=== PATIENT | male | born 1970 | race Caucasian/White ===

== ENCOUNTER 2019-12-31 09:58 | Emergency (ER) | payer BC, SELFPAY ==
[2019-12-31 10:02] VITALS: BP 146/88; PULSE 100; RESP 18; TEMP 36.7; O2SAT 100
--- NOTE | 2019-12-31 11:49 | ED.BACK ---
HPI - Back Pain/Injury General Chief Complaint: Back Pain/Injury Stated Complaint: worsening back pain Time Seen by Provider: 12/31/19 11:07 Source: patient Mode of arrival: ambulatory Limitations: no limitations History of Present Illness HPI Narrative: This is a 49-year-old male that presents the emergency department for low back pain starting yesterday. Does report a history of chronic low back problems that have been intermittent over the last 5 years. No recent injuries or trauma. Reports the pain radiates into his hip and groin on both sides. Also radiates into his legs at times. Pain is sharp and constant, worse with movement. Denies fever, abdominal pain, nausea, vomiting, saddle anesthesia, bowel/bladder incontinence, dysuria or hematuria. Related Data Home Medications Medication Instructions Recorded Confirmed cyanocobalamin (vitamin B-12) 1,000 mcg PO DAILY 12/31/19 [Vitamin B-12] hydrocodone-acetaminophen [Teton] 1 tablet PO Q6H PRN 12/31/19 loratadine [Claritin] 10 mg PO DAILY 12/31/19 Allergies Allergy/AdvReac Type Severity Reaction Status Date / Time Penicillins AdvReac Mild Nausea and Verified 12/31/19 10:10 Vomiting Review of Systems Review of Systems: Narrative: CONSTITUTIONAL: Denies fever GASTROINTESTINAL: Denies abdominal pain, nausea, vomiting GENITOURINARY: Denies dysuria or hematuria. SKIN: Denies rash MUSCULOSKELETAL: Reports back pain, joint pain, and myalgia. NEUROLOGIC: Denies numbness, or weakness. All systems reviewed & are unremarkable except as noted in HPI and below PMFSH Past Medical History Medical History (Updated 12/31/19 @ 13:00 by Marii Mcpherson PA-C) History of chronic back pain Social History Social History (Updated 12/31/19 @ 11:50 by Marii Mcpherson PA-C) Smoking status: Current every day smoker Substance use: never Gender identity (if verbalized by the patient): Male Exam Narrative: Exam Narrative: GENERAL: Well-appearing, well-nourished, and in no acute distress. HEAD: Normocephalic, atraumatic. EYES: EOMI. CHEST: Clear to auscultation. No respiratory distress. No wheezes rales or rhonchi HEART: Regular rate and rhythm. No murmur heard. Normal peripheral pulses. ABDOMEN: Soft, nontender, nondistended, normal active bowel sounds. No CVA tenderness BACK: No midline spinal tenderness EXTREMITIES: Normal range of motion. No edema. Strength equal in bilateral lower extremities. Normal patellar reflexes SKIN: Warm, dry, no rash. NEURO: No focal deficits. Alert and oriented x3. Normal gait PSYCH: Normal mood and affect Course Vital Signs Vital signs: Vital Signs Temperature 98.1 F 12/31/19 10:02 Pulse Rate 100 12/31/19 10:02 Respiratory Rate 18 12/31/19 10:02 Blood Pressure 146/88 H 12/31/19 10:02 Pulse Oximetry 100 12/31/19 10:02 Temperature 98.1 F 12/31/19 10:02 Pulse Rate 100 12/31/19 10:02 Respiratory Rate 18 12/31/19 10:02 Blood Pressure 146/88 H 12/31/19 10:02 Pulse Oximetry 100 12/31/19 10:02 MDM - Back Pain/Injury MDM Narrative Medical decision making narrative: Patient presents to the ER for low back pain since yesterday. No new injury or trauma. Patient is afebrile and nontoxic-appearing. He is neurologically intact. Reports a history of chronic low back pain. CBC and metabolic panel are without acute changes. Inflammatory markers are not elevated. UA is normal. Patient updated on case findings. Reports relief with Toradol and Valium. Patient stable and felt appropriate for further outpatient evaluation. He is to follow-up with primary care doctor. He was given warnings to return to the ER Lab Data Attestation: I reviewed the patient's lab results. Result diagrams: 12/31/19 12:01 12/31/19 12:01 Labs: Lab Results 12/31/19 12/31/19 12/31/19 Range/Units 12:01 12:01 12:01 WBC 9.5 (4.5-10.0) K/mm3 RBC 5.02 (4.6-6.20) M/mm3 Hgb 14
[2019-12-31] MEDS: KETOROLAC 30 MG/ML VIAL (*BKC) IV PUSH (11:59)
[2019-12-31 12:08] LABS: Basophils Absolute Auto 0.1 K/mm3 (0.0-0.1); Eosinophils Absolute Auto 0.3 K/mm3 (0-0.3); Hematocrit 42.7 % (42.0-52.0); Hemoglobin 14.5 g/dL (14.0-18.0); Immature Granulocyte Absolute 0.04 K/mm3 (0.00-0.031); Immature Granulocyte Percent A 0.4 % (0-0.5); Lymphocytes Absolute Auto 2.91 K/mm3 (0.9-3.2); Lymphocytes Percent Auto 30.5 % (18.3-44.2); Mean Corpuscular Hemoglobin 28.9 pg (26-34); Mean Corpuscular Volume 85.1 fl (80-100); Mean Platelet Volume 9.6 fl (7.4-10.4); Monocytes Absolute Auto 0.7 K/mm3 (0.1-0.6); Neutrophils Absolute Auto 5.5 K/mm3 (1.3-6.7); Neutrophils Percent Auto 58.1 % (45.5-73.1); Platelet Count Result 256 k/mm3 (150-375); Red Blood Count 5.02 M/mm3 (4.6-6.20); Red Cell Distribution Width 13.5 % (11.5-14.5); White Blood Count 9.5 K/mm3 (4.5-10.0)
[2019-12-31 12:24] LABS: Blood Urea Nitrogen 15 mg/dL (9-20); Calcium 9.2 mg/dL (8.4-10.2); Carbon Dioxide 27 mmol/L (22-30); Chloride 106 mmol/L (98-107); Estimated CRCL calculation 102 ml/min; Estimated Glomerular Filt Rate > 60; Glucose 81 mg/dL (75-110); Potassium 3.7 mmol/L (3.4-5.0); Sodium 138 mmol/L (137-145)
[2019-12-31 12:37] LABS: Add Urine Microscopic? YES; Appearance Urine Clear (Clear); Bilirubin Urine Negative (Negative); Blood Urine Negative (Negative); Color Urine Yellow (Yellow); Glucose Urine UA Negative (Negative); Ketones Urine Negative (Negative); Leukocyte Esterase Ur Negative LEU/UL (Negative); Mucus Urine Rare /lpf; Nitrate Urine Negative (Negative); Protein Urine Negative (Negative); RBC Urine 0-2 /hpf (0-2); Specific Grav Ur 1.027 (1.001-1.035); Urobilinogen Urine Negative mg/dL (<2.0); WBC Urine 0-3 /hpf
[2019-12-31 12:39] LABS: Erythrocyte Sedimentation Rate 17 mm/hr (0-20)
[2019-12-31 13:16] LABS: CRP 1.6 mg/dL (<1.0)
== END 2019-12-31 13:32 | disposition home or self-care (01) ==
PROVIDERS: Physician Assistant; Emergency Provider Emergency Medicine; PCP Family Medicine Adolescent Medicine
DX: M54.42 Lumbago with sciatica, left side (principal); M54.41 Lumbago with sciatica, right side; F17.200 Nicotine dependence, unspecified, uncomplicated
CPT/HCPCS: 36415; 80048; 81001; 85025; 85652; 86140; 96374; 96375; 99284; J1885; J3360

== ENCOUNTER 2020-01-02 16:33 | Outpatient (CLI) | payer BC, SELFPAY ==
--- NOTE | ~2020-01-02 | XR_ITS ---
EXAMINATION: XR lumbar spine 2-3V DATE: 01/02/2020 17:00 INDICATION: Severe low back pain TECHNIQUE: Anteroposterior and lateral views of the lumbar spine, and cone-down lateral view of the l umbosacral junction were obtained. COMPARISON: None. FINDINGS: There is no fracture, dislocation, or subluxation. The vertebral body heights are normal. T here is mild loss of intervertebral disc space height at L4-5 and L5-S1. Small degenerative osteophyt es project from the anterior endplates of multiple vertebral bodies. Tgwv-[id number]-[id number] facet osteoarth ritis is noted at L4-5 and L5-S1. The bowel gas pattern is normal. There is minimal calcified atheros clerosis. IMPRESSION: 1. Mild lower lumbar spondylosis without acute findings. Reviewed, dictated and finalized at location A.
== END 2020-01-02 16:34 | disposition home or self-care (01) ==
LOC: ANHIMG 16:37
PROVIDERS: PCP Family Medicine Adolescent Medicine; Visit Provider Family Medicine Adolescent Medicine
DX: M54.5 Low back pain (principal); M47.816 Spondylosis without myelopathy or radiculopathy, lumbar region
CPT/HCPCS: 72100

== ENCOUNTER → 2021-03-15 10:38 | Outpatient (CLI) | payer BC, SELFPAY ==
--- NOTE | ~2021-03-15 | XR_ITS ---
XR shoulder RT min 2V DATE: 03/15/2021 11:28 INDICATION: Right shoulder injury, pain TECHNIQUE: 4 views COMPARISON: None FINDINGS: Normal alignment at the acromioclavicular and glenohumeral joints. No fracture, dislocation , periosteal reaction or bone destruction or abnormal right shoulder soft tissue calcification. Mild thoracic spine dextroscoliosis, lower thoracic spine and degenerative spurring. IMPRESSION: No significant abnormality right shoulder Reviewed, dictated and finalized at location B.
== END ==
PROVIDERS: PCP Family Medicine Adolescent Medicine; Visit Provider Family Medicine Adolescent Medicine
DX: S49.91XA Unspecified injury of right shoulder and upper arm, initial encounter (principal)
CPT/HCPCS: 73030

== ENCOUNTER 2022-09-30 14:30 | Emergency (ER) | payer BC, SELFPAY ==
[2022-09-30 14:42] VITALS: BP 120/76; PULSE 94; RESP 16; TEMP 36.6; O2SAT 99
--- NOTE | 2022-09-30 15:07 | ED.URI ---
HPI - URI/Sore Throat General Chief Complaint: Upper Respiratory Infection Stated Complaint: ear/nose Time Seen by Provider: 09/30/22 15:01 Source: patient and family (Mother) Mode of arrival: ambulatory Limitations: no limitations History of Present Illness HPI Narrative: Patient presents today with a one-week history of cough, nasal congestion, bilateral ear pain, with sore throat that started yesterday. States his daughter who is a sed high school teacher was diagnosed with strep throat. He has been taking DayQuil and NyQuil with some relief. Denies history of asthma or COPD. Denies shortness of breath or chest pain. Related Data Home Medications Medication Instructions Recorded Confirmed loratadine 10 mg tablet (Claritin) 10 mg PO DAILY 12/31/19 09/30/22 Allergies Allergy/AdvReac Type Severity Reaction Status Date / Time Penicillins AdvReac Mild Nausea and Verified 09/30/22 14:39 Vomiting amoxicillin [From Augmentin] AdvReac Unknown Abdominal Verified 09/30/22 14:39 Pain clavulanic acid AdvReac Unknown Abdominal Verified 09/30/22 14:39 [From Augmentin] Pain Review of Systems Review of Systems: CONSTITUTIONAL: Denies body aches, fever, chills, or sweats. EYES: Denies visual changes, redness, or discharge. ENT: Denies rhinorrhea. + congestion, sore throat, ear pain CARDIOVASCULAR: Denies chest pain, palpitations, or edema. RESPIRATORY: Denies dyspnea.+ cough GASTROINTESTINAL: Denies abdominal pain, nausea, vomiting, or diarrhea. GENITOURINARY: Denies dysuria or hematuria. SKIN: Denies rash, itching, or wounds. MUSCULOSKELETAL: Denies back pain, joint pain, or myalgia. NEUROLOGIC: Denies headache, numbness, tingling, or weakness. PSYCH: Denies depression or anxiety. [facility] Past Medical History Medical History History of chronic back pain Family History Family History Mother CHF (congestive heart failure) Grandparent Lung cancer COPD (chronic obstructive pulmonary disease) Social History Social History (Reviewed 09/30/22 @ 15:08 by Elisha Patel, LYUBOV, [place] Smoking status: Current every day smoker Substance use: never Gender identity (if verbalized by the patient): Male Comments At time of signature, I have reviewed and agree with nursing past medical, surgical, social and family history unless otherwise noted. Please see nursing chart for further information. There is no relevant family history pertinent to the presenting complaint Exam Narrative: GENERAL: Well-appearing, well-nourished, and in no acute distress. HEAD: Normocephalic, atraumatic. EYES: EOMI. No redness or drainage. Conjunctivae normal. ENT: Mucous membranes pink and moist. Nares mildly congested. No rhinorrhea. TMs normal bilaterally. Throat mildly erythematous without edema or exudate. Uvula midline. NECK: Normal AROM. Supple. No lymphadenopathy. CHEST: No respiratory distress. Clear to auscultation. HEART: Regular rate and rhythm. No murmur appreciated. Normal peripheral pulses. EXTREMITIES: Normal range of motion. No edema. SKIN: Warm, dry, no rash. Capillary refill normal. Normal skin turgor. NEURO: No focal deficits. Alert and oriented x3. Gait steady. PSYCH: Normal affect. No signs of depression or anxiety. Course Course Level of Care: Express Care Visit Vital Signs Vital signs: Vital Signs Temperature 97.9 F 09/30/22 14:42 Pulse Rate 94 09/30/22 14:42 Respiratory Rate 16 09/30/22 14:42 Blood Pressure 120/76 09/30/22 14:42 Pulse Oximetry 99 09/30/22 14:42 Temperature 97.9 F 09/30/22 14:42 Pulse Rate 94 09/30/22 14:42 Respiratory Rate 16 09/30/22 14:42 Blood Pressure 120/76 09/30/22 14:42 Pulse Oximetry 99 09/30/22 14:42 Reviewed MDM - URI/Sore Throat MDM Narrative Medical decision making narrative: Rapid strep negative. Pat
== END 2022-09-30 15:12 | disposition home or self-care (01) ==
PROVIDERS: Emergency Provider Nurse Practitioner; PCP Family Medicine Adolescent Medicine
DX: J06.9 Acute upper respiratory infection, unspecified (principal); F17.290 Nicotine dependence, other tobacco product, uncomplicated
CPT/HCPCS: 87081; 87880; 99213; G0463

== ENCOUNTER 2024-10-07 12:35 | Outpatient (CLI) | payer BC, SELFPAY ==
--- NOTE | ~2024-10-07 | CT_ITS ---
CT Scan of the Chest without Contrast: Clinical Indication: Lung cancer screening, nicotine dependence Technique: Contiguous sections were acquired throughout the chest without intravenous contrast. Dose reduction technique was used on this scan by utilizing automated exposure control and iterative recon struction technique. The dose-length product (DLP) was 86.08 mGy-cm. Findings: There is no evidence of any significant mediastinal, hilar or axillary lymphadenopathy. Calcified sub carinal lymph node present. There is no evidence of pleural or pericardial effusion. Probable minimal bibasilar chronic interstitial changes. No pulmonary nodule evident. Images through the upper abdomen reveal no abnormalities. Impression: Lung RADS 1: Negative. 12 month follow-up screening CT advised. Reviewed, dictated and finalized at location . [employer] Impression: Lung RADS 1: Negative. 12 month follow-up screening CT advised.
== END 2024-10-07 12:36 | disposition home or self-care (01) ==
LOC: GOSHIMG 12:36
PROVIDERS: PCP Family Medicine Adolescent Medicine; Visit Provider Nurse Practitioner Family
DX: Z12.2 Encounter for screening for malignant neoplasm of respiratory organs (principal); Z87.891 Personal history of nicotine dependence
CPT/HCPCS: 71271

== ENCOUNTER 2024-10-07 12:54 | Outpatient (CLI) | payer BC, SELFPAY ==
[2024-10-07 19:29] LABS: Alanine Aminotransferase 58 U/L (6-50); Albumin Level 4.3 g/dL (3.5-5.1); Alkaline Phosphatase 103 U/L (38-126); Anion Gap 11 mmol/L (4-12); Aspartate Amino Transferase 41 U/L (17-59); Bilirubin,Total 0.8 mg/dL (0.2-1.3); Blood Urea Nitrogen 14 mg/dL (9-20); Calcium 9.3 mg/dL (8.4-10.2); Carbon Dioxide 27 mmol/L (22-30); Chloride 104 mmol/L (98-107); Cholesterol 211 mg/dL (0-200); Estimated Glomerular Filt Rate > 60; Glucose 114 mg/dL (65-110); HDL Direct 40 mg/dL; Potassium 4.3 mmol/L (3.4-5.0); Sodium 142 mmol/L (137-145); Triglycerides 130 mg/dL (<150)
[2024-10-07 19:40] LABS: LDL Cholesterol Direct 139 mg/dL
[2024-10-07 20:46] LABS: Hepatitis C Virus Antibody Negative (Negative)
== END 2024-10-07 12:55 | disposition home or self-care (01) ==
LOC: ANHGOSHLAB 12:56
PROVIDERS: PCP Family Medicine Adolescent Medicine; Visit Provider Nurse Practitioner Family
DX: Z13.220 Encounter for screening for lipoid disorders (principal); Z11.59 Encounter for screening for other viral diseases; I70.0 Atherosclerosis of aorta
CPT/HCPCS: 36415; 80053; 80061; 86803

== ENCOUNTER 2024-12-02 02:13 | Day surgery (SDC) | payer BC, SELFPAY ==
[2024-11-21 14:09] VITALS: BMI 25.7
[2024-12-02 11:40] VITALS: BP 134/81; PULSE 85; RESP 18; TEMP 36.8; O2SAT 100
[2024-12-02] MEDS: LACTATED RINGERS 1,000 ML 150 ML IV CONT (11:51)
--- NOTE | 2024-12-02 11:56 | WPDANESEPPF ---
Anes - Initial Pre Proc Eval Procedure: Operation Date: 12/02/24 13:00 Proposed Procedures p Screening Colonoscopy - Fabio Sims MD Date/Time: 12/02/24 11:56 Surgeon: Fabio Sims MD Pre Op Diagnosis: Screening Patient Data Age: 54 Gender: M Height: 1.63 m Weight: 67 kg Last Vital Signs Temp 36.8 C 12/02/24 11:40 Pulse 85 12/02/24 11:40 Resp 18 12/02/24 11:40 BP 134/81 12/02/24 11:40 Pulse Ox 100 12/02/24 11:40 O2 Del Method Room Air 12/02/24 11:40 Allergies Allergy/AdvReac Type Severity Reaction Status Date / Time Penicillins AdvReac Mild Nausea and Verified 12/02/24 11:39 Vomiting amoxicillin (From Augmentin) AdvReac Unknown Abdominal Verified 12/02/24 11:39 Pain clavulanic acid (From AdvReac Unknown Abdominal Verified 12/02/24 11:39 Augmentin) Pain Home Medications ?Medication ?Instructions ?Recorded ?Confirmed ?Type albuterol sulfate 90 mcg/actuation 2 inh inhalation QID PRN shortness 07/04/24 11/21/24 Rx aerosol inhaler of breath or wheezing #8.5 grams hydrocodone 5 mg-acetaminophen 325 1 tablet PO Q6H PRN pain #40 tabs 09/30/24 11/21/24 Rx mg tablet nicotine (polacrilex) 4 mg gum 4 mg buccal Q2H #100 ea 09/30/24 12/02/24 Rx (Nicorette) atorvastatin 20 mg tablet (Lipitor) 20 mg PO QHS #90 tabs 10/08/24 12/02/24 Rx Patient hx anesthesia problems: none Family hx anesthesia problems: none Results Review: All pre-operative results and documents have been reviewed as part of the pre-operative evaluation. [facility] Past Medical History Medical History (Updated 12/02/24 @ 11:56 by Migel Childs MD) Hyperlipidemia HTN (hypertension) Tobacco use disorder History of chronic back pain Family History Family History Mother CHF (congestive heart failure) Grandparent Lung cancer COPD (chronic obstructive pulmonary disease) Sibling Thyroid condition Other Diabetes mellitus Heart disease Social History Social History Smoking status: Current every day smoker Tobacco type: cigarettes Alcohol intake: current Alcohol use details: occasionally Substance use: never Substance use type: does not use Do You Feel Safe in your Home?: Yes Lack of Transportation: No Lack of Food: Never True Current Housing: I Have Housing Concerned About Future Housing: No Difficulty Paying Gas/Electric Bills: No Difficulty Paying for Meds: No Currently Unemployed: No Education: High School Diploma/GED Difficulty w/ Childcare or Family Care: No Living arrangements: with family Occupation/Education: occupation 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 Informed Consent: The patient's anesthetic plan and its attendant risks and benefits were discussed with the patient/family/POA. Questions were solicited and answers provided to the satisfaction of the patient/family/POA.
--- NOTE | 2024-12-02 13:35 | P.HP_ITS ---
H&P: HPI History of Present Illness Date/Time: 12/02/24 13:35 Chief Complaint: Screening colonoscopy Narrative: This is the patient's first colonoscopy. There are no GI symptoms and there is no family history of colorectal cancer. Review of Systems Review of Systems: All systems reviewed & are unremarkable except as noted in HPI and below PMFSH Past Medical History Medical History (Updated 12/02/24 @ 11:56 by Migel Childs MD) Hyperlipidemia HTN (hypertension) Tobacco use disorder History of chronic back pain Family History Family History Mother CHF (congestive heart failure) Grandparent Lung cancer COPD (chronic obstructive pulmonary disease) Sibling Thyroid condition Other Diabetes mellitus Heart disease Social History Social History Smoking status: Current every day smoker Tobacco type: cigarettes Alcohol intake: current Alcohol use details: occasionally Substance use: never Substance use type: does not use Do You Feel Safe in your Home?: Yes Lack of Transportation: No Lack of Food: Never True Current Housing: I Have Housing Concerned About Future Housing: No Difficulty Paying Gas/Electric Bills: No Difficulty Paying for Meds: No Currently Unemployed: No Education: High School Diploma/GED Difficulty w/ Childcare or Family Care: No Living arrangements: with family Occupation/Education: occupation 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 Gender identity (if verbalized by the patient): Male Meds Home Medications and Allergies Home Medications ?Medication ?Instructions ?Recorded ?Confirmed ?Type albuterol sulfate 90 mcg/actuation 2 inh inhalation QID PRN shortness 07/04/24 11/21/24 Rx aerosol inhaler of breath or wheezing #8.5 grams hydrocodone 5 mg-acetaminophen 325 1 tablet PO Q6H PRN pain #40 tabs 09/30/24 11/21/24 Rx mg tablet nicotine (polacrilex) 4 mg gum 4 mg buccal Q2H #100 ea 09/30/24 12/02/24 Rx (Nicorette) atorvastatin 20 mg tablet (Lipitor) 20 mg PO QHS #90 tabs 10/08/24 12/02/24 Rx Allergies Allergy/AdvReac Type Severity Reaction Status Date / Time Penicillins AdvReac Mild Nausea and Verified 12/02/24 11:39 Vomiting amoxicillin (From Augmentin) AdvReac Unknown Abdominal Verified 12/02/24 11:39 Pain clavulanic acid (From AdvReac Unknown Abdominal Verified 12/02/24 11:39 Augmentin) Pain Vital Signs Vital Signs - 24 hr 12/02/24 11:40 Temperature 98.2 F Pulse Rate 85 Respiratory Rate 18 Blood Pressure 134/81 Pulse Oximetry 100 Oxygen Delivery Room Air Exam Const: General: cooperative and healthy appearing Resp: Effort & Inspection: normal respiratory effort and able to speak in complete sentences Auscultation: clear to auscultation bilaterally Cardio: Rate: regular rate Rhythm: regular rhythm GI: Inspection: normal to inspection GI Palp: No No hepatosplenomegaly present Auscultation: normal bowel sounds Rectal Exam: deferred Skin: General skin exam: normal color Psych: Appearance: grossly normal Mental Status: mental status grossly normal Assessment and Plan Assessment and plan (1) Colon cancer screening: Code(s): Z12.11 - Encounter for screening for malignant neoplasm of colon Status: Acute Assessment and Plan: The patient is deemed a good candidate for the procedure. Consent signed. Will proceed.
[2024-12-02] MEDS: SIMETHICONE ORAL SUSPENSION 20 MG/0.3 ML 30 ML BOTTLE 0.6 ML IRRIGATION (13:51)
[2024-12-02 14:10] VITALS: BP 106/66; PULSE 70; RESP 18; O2SAT 97
[2024-12-02 14:20] VITALS: BP 106/74; PULSE 75; RESP 18; O2SAT 99
[2024-12-02 14:28] VITALS: BP 126/79; PULSE 66; RESP 18; O2SAT 100
== END 2024-12-02 14:55 | disposition home or self-care (01) ==
PROVIDERS: PCP Family Medicine Adolescent Medicine; Referring Provider Nurse Practitioner Family; Visit Provider Internal Medicine Gastroenterology
PROC: 0DJD8ZZ Inspection of Lower Intestinal Tract, Via Natural or Artificial Opening Endoscopic (ICD-10-PCS; CPT 45378; principal; 2024-12-02 13:00)
DX: Z12.11 Encounter for screening for malignant neoplasm of colon (principal); K63.5 Polyp of colon; E78.5 Hyperlipidemia, unspecified; I10 Essential (primary) hypertension; G89.29 Other chronic pain; M54.9 Dorsalgia, unspecified; F17.210 Nicotine dependence, cigarettes, uncomplicated; Z79.51 Long term (current) use of inhaled steroids; Z79.891 Long term (current) use of opiate analgesic; Z80.1 Family history of malignant neoplasm of trachea, bronchus and lung; Z82.49 Family history of ischemic heart disease and other diseases of the circulatory system
CPT/HCPCS: 45385; 88305; J2405; J2704; J7120

== ENCOUNTER 2025-08-07 11:10 | Emergency (ER) | payer BC, SELFPAY ==
--- NOTE | ~2025-08-07 | XR_ITS ---
EXAMINATION: [id number] DATE: 08/07/2025 11:54 INDICATION: Fall 6 days prior TECHNIQUE: A frontal inspiratory view of the chest and 3 views of the left ribs were obtained. COMPARISON: Chest radiograph dated 09/17/[address] dated 10/07/2024. FINDINGS: No rib fractures identified. No pneumothorax. No focal infiltrates, pleural effusion or pulmonary edema. Cardiomediastinal silhouette is normal. Moderate thoracic spondylosis with chronic T6 compression fracture. IMPRESSION: 1. No rib fracture or acute cardiopulmonary disease. Reviewed, dictated and finalized at location A. 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
[2025-08-07 11:22] VITALS: BP 152/82; PULSE 82; RESP 16; TEMP 36.4; O2SAT 100
--- NOTE | 2025-08-07 12:02 | ED.GENADULT ---
HPI - General Adult General Chief complaint: Fall Stated complaint: Ribs hurting Time Seen by Provider: 08/07/25 12:07 Source: patient, RN notes reviewed and old records reviewed Mode of arrival: ambulatory Limitations: no limitations History of Present Illness HPI narrative: 54-year-old male presents to the [facility] with left anterior rib discomfort. States that he tripped and fell injuring his ribs. Pain only with deep breathing. Has been taking hydrocodone that his primary doctor prescribes. Related Data Allergies Allergy/AdvReac Type Severity Reaction Status Date / Time Penicillins AdvReac Mild Nausea and Verified 01/07/25 07:31 Vomiting amoxicillin (From Augmentin) AdvReac Unknown Abdominal Verified 01/07/25 07:31 Pain clavulanic acid (From AdvReac Unknown Abdominal Verified 01/07/25 07:31 Augmentin) Pain Review of Systems Review of Systems: All systems reviewed & are unremarkable except as noted in HPI and below Constitutional: Constitutional: Reports no additional constitutional complaints ENT: Reports system reviewed and no additional complaints, except as documented Cardiovascular: Cardiovascular: Reports no additional cardiovascular complaints, Denies chest pain and Denies dyspnea Respiratory: Respiratory: Reports no additional respiratory complaints, Denies chest congestion, Denies cough and Denies dyspnea Musculoskeletal: Musculoskeletal: Reports as per HPI Integumentary/Breasts: Skin/Breast: Reports system reviewed and no additional complaints, except as docu PMFSH Past Medical History Medical History Tobacco use disorder BMI 26.0-26.9,adult Hyperlipidemia HTN (hypertension) History of chronic back pain Family History Family History Mother CHF (congestive heart failure) Heart disease Grandparent Lung cancer COPD (chronic obstructive pulmonary disease) Sibling Thyroid condition Father Diabetes mellitus Social History Social History Smoking packs per day: 1 Smoking cigarettes per day: 20.0 Smoking status: Current every day smoker Tobacco type: cigarettes Second hand tobacco smoke exposure: Yes Alcohol intake: current Alcohol use details: occasionally Substance use: never Substance use type: does not use Lack of Transportation: No Lack of Food: Never True Current Housing: I Have Housing Concerned About Future Housing: No Difficulty Paying Gas/Electric Bills: No Difficulty Paying for Meds: No Currently Unemployed: No Education: High School Diploma/GED Difficulty w/ Childcare or Family Care: No Living arrangements: with family Occupation/Education: occupation 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 There is no relevant family history pertinent to the patient complaint. Exam Const: General: cooperative, healthy appearing, comfortable, no acute distress, well developed, alert and well nourished Nutritional Appearance: well nourished Orientation/consciousness: patient oriented x3 Limitations: no limitations HENMT: Head: normal to inspection Eyes: General: appearance normal, both eyes and all related structures Alignment and Position: alignment normal Neck: Neck: normal visual inspection, full ROM, no lymphadenopathy and no meningeal signs Chest: Chest palpation & inspection: normal inspection of the chest Chest/axillae images:  1. Tenderness without erythema, ecchymosis post fall Resp: Effort & Inspection: normal respiratory effort and able to speak in complete sentences Auscultation: clear to auscultation bilaterally, no crackles, no rales, no rhonchi and no wheezes Cardio: Rate: regular rate Skin: General skin exam: normal color and no rashes or lesions noted Neuro: General: patient oriented x3, gait normal, moves all extremities and no meningeal signs Cognition (Neuro): normal cognition Speech: normal speech Gait exam (Neuro): Normal gait present Extrem: General: normal to inspection, full ROM, capillary refill normal and normal gait Psych: Appearance: grossly normal and well kempt Mental Status: mental status grossly normal Speech and movement: Normal speech and movement present and Clear speech present Affect: normal affect Attitude: cooperative Course Course Level of Care: Express Care Visit Vital Signs Vital signs: Vital Signs Temperature 97.5 F L 08/07/25 11:22 Pulse Rate 82 08/07/25 11:22 Respiratory Rate 16 08/07/25 11:22 Blood Pressure 152/82 H 08/07/25 11:22 Pulse Oximetry 100 08/07/25 11:22 Temperature 97.5 F L 08/07/25 11:22 Pulse Rate 82 08/07/25 11:22 Respiratory Rate 16 08/07/25 11:22 Blood Pressure 152/82 H 08/07/25 11:22 Pulse Oximetry 100 08/07/25 11:22 reviewed MDM MDM Narrative Medical decision making narrative: In sitting in exam room. Patient is nontoxic, vitals stable. Patient presents with anterior rib pain post fall 1 week ago. X-ray showed no acute findings. No erythema, ecchymosis. Patient outpatient treatment with close follow-up Discharge instructions reviewed with patient, as well as provided in writing per nursing staff. The instructions also include specific and strict return/GO TO THE ER as well as f/u information. All questions have been answered, and the patient deny any further questions with discharge and discharge plan. Some parts of this dictation were generated by voice recognition software and may contain typographical and/or grammatical inaccuracies. Differential Diagnosis Differential Diagnosis: Differential diagnostic considerations for upper extremity injury include rib fracture, rib contusion, pneumothorax Imaging Data Radiologist's impression: ITS Impressions Ribs w/Chest X-Ray 08/07/25 11:58 IMPRESSION: 1. No rib fracture or acute cardiopulmonary disease. Discharge Plan Discharge Clinical Impression: Contusion of rib on left side Qualifiers: Encounter type: initial encounter Qualified Code(s): S29.8XXA - Other specified injuries of thorax, initial encounter Patient Disposition: Home Condition: Stable Instructions: Rib Contusion (ED) Additional Instructions: Your Xray did not show a fracture. Ice should be applied to help reduce swelling. It can be used for 20 to 30 minutes, every 2-3 hours while awake. Do not apply ice directly to your skin. Take ibuprofen 600mg 3 times a day as needed for pain Please schedule a follow-up visit with your personal physician for further evaluation and treatment within 2 weeks especially if symptoms persist. For new or worsening symptoms go directly to the emergency room Patient Language: Yemeni Prescriptions: No Action atorvastatin [Lipitor] 20 mg tablet 20 mg PO QHS Qty: 90 2RF nicotine (polacrilex) [Nicorette] 4 mg gum 4 mg buccal Q2H Qty: 100 2RF albuterol sulfate 90 mcg/actuation HFA aerosol inhaler 2 inh inhalation QID PRN (Reason: shortness of breath or wheezing) Qty: 8.5 3RF hydrocodone-acetaminophen 5-325 mg tablet 1 tablet PO Q6H PRN (Reason: pain) Qty: 40 0RF Follow-up/Referrals: Dylan Villarreal MD [Primary Care Provider, Family Practice] - 1 Week Clinical Impression: Contusion of rib on left side Stand Alone Forms: Work/School Release IP Time of Disposition: 12:18
== END 2025-08-07 12:25 | disposition home or self-care (01) ==
PROVIDERS: Emergency Provider Nurse Practitioner; PCP Family Medicine Adolescent Medicine
DX: S20.212A Contusion of left front wall of thorax, initial encounter (principal); W01.0XXA Fall on same level from slipping, tripping and stumbling without subsequent striking against object, initial encounter; I10 Essential (primary) hypertension; E78.5 Hyperlipidemia, unspecified; F17.210 Nicotine dependence, cigarettes, uncomplicated
CPT/HCPCS: 71101; 99213; G0463